=== PATIENT | female | born 2000 ===

== ENCOUNTER 2019-05-22 19:03 | Inpatient (IN) ==
[2019-05-22] MEDS ORDERED: CITRIC ACID/SODIUM CITRATE 30 ML UDCUP PO ONE (19:05)
[2019-05-22] MEDS: LACTATED RINGERS 1,000 ML IV SCH ×2 (19:20→22:21)
[2019-05-22] MEDS ORDERED: OXYTOCIN/LR 20 UNIT/1,000 ML BAG IV PRN (19:34)
[2019-05-22] MEDS ORDERED: OXYTOCIN/LR 30 UNIT/1,000 ML BAG IV PRN (19:34)
[2019-05-22] MEDS ORDERED: FAMOTIDINE 20 MG/2 ML VIAL IV PRN (19:34)
[2019-05-22] MEDS ORDERED: ONDANSETRON 4 MG/2 ML VIAL IV PRN (19:36)
[2019-05-22] MEDS ORDERED: MEPERIDINE 50 MG/1 ML VIAL IV PRN (19:36)
[2019-05-22] MEDS ORDERED: MEPERIDINE 25 MG/1 ML VIAL ONE (19:46)
[2019-05-22] MEDS ORDERED: ceFAZolin 2,000 MG in SYRINGE 1 EACH IV PRN (20:06)
[2019-05-22 20:11] LABS: Basophils % 0.2 % (0.0-0.8); Eosinophils % 0.3 % (0.00-10.9); Hematocrit 29.5 VOL% (35.7-47.0); Hemoglobin 8.5 GM/DL (12.0-16.0); Immature Granulocytes % 0.5 %; Immature Granulocytes Absolute 0.05 #; Lymphocytes # 2.5 10*3/uL (1.4-4.0); Lymphocytes % 26.2 % (21.3-54.2); Mean Corpuscular HGB Conc 28.8 GM/DL (32-36); Mean Corpuscular Volume 73.4 FL (87-102); Monocytes % 5.3 % (1.7-12.7); Neutrophils % 67.5 % (38.7-73.9); Platelet Count 240 T/CUMM (130-400); Red Blood Count 4.02 MC/CUMM (3.8-5.5); Red Cell Distribution Width 17.5 % (9.3-17.3); White Blood Count 9.5 T/CUMM (4-12)
[2019-05-22 20:13] LABS: Anisocytosis Slight; Elliptocytes Few; Hypochromasia 1+; Microcytosis 1+
[2019-05-22 20:14] LABS: Platelet Estimate Adequate; Polychromasia 1+
[2019-05-22] MEDS ORDERED: ONDANSETRON 4 MG/2 ML VIAL IV ONE (21:58)
[2019-05-22] MEDS ORDERED: diphenhydrAMINE 50 MG/1 ML VIAL IV PRN ×2 (21:58)
[2019-05-22] MEDS ORDERED: NALOXONE 0.4 MG/ML VIAL IV PRN (21:58)
[2019-05-22] MEDS ORDERED: hydrOXYzine HCL 25 MG/1 ML VIAL IM PRN (21:58)
[2019-05-22] MEDS ORDERED: PROMETHAZINE 25 MG/1 ML VIAL IM PRN (21:58)
[2019-05-22] MEDS ORDERED: ePHEDrine 50 MG/ML AMP IV PRN (21:58)
[2019-05-22] MEDS: fentaNYL 2 MCG/ROPIV 0.2% EPID 100 ML EPIDURAL SCH (23:08)
[2019-05-23] MEDS ORDERED: AMPICILLIN INJ 2,000 MG in SODIUM CHLORIDE 0.9% 100 ML IV SCH (01:00)
[2019-05-23 02:40] LABS: Apearance,Urine CLEAR (Clear); Bilirubin,Urine Negative (Negative); Blood, Urine Negative (Negative); Glucose,Urine (UA) Negative (Negative); Ketones,Urine 5 mg/dL (Negative); Mucus,Urine Occasional /LPF (Occasional); Nitrite,Urine Negative (Negative); Protein,Urine Negative; RBC,Urine <1 /HPF (0-4); Squamous Epithelial Cell,Urine Occasional /HPF (0-10); Urine Color Yellow (Yellow); Urine Specific Gravity 1.012 (1.001-1.035); Urine Urobilinogen < 2.0 EU/DL (0.2-1.0); WBC,Urine <1 /HPF (0-6)
[2019-05-23] MEDS: LACTATED RINGERS 1,000 ML IV SCH (04:45)
[2019-05-23] MEDS ORDERED: miSOPROStol 200 MCG TABLET ONE (07:59)
[2019-05-23] MEDS: fentaNYL 2 MCG/ROPIV 0.2% EPID 100 ML EPIDURAL SCH (08:15)
[2019-05-23] MEDS ORDERED: WITCH HAZEL PADS 100/JAR TOP PRN (12:27)
[2019-05-23] MEDS ORDERED: MEASLES/MUMPS/RUBELLA VACCINE 0.5 ML VIAL SUBCUT ONE (12:27)
[2019-05-23] MEDS ORDERED: IBUPROFEN 800 MG TABLET PO PRN (12:27)
[2019-05-23] MEDS ORDERED: LANOLIN 50% CREAM 0.3 OZ TUBE TOP PRN (12:27)
[2019-05-23] MEDS ORDERED: ACETAMINOPHEN 325 MG TABLET PO PRN (12:27)
[2019-05-23] MEDS ORDERED: HYDROCORTISONE 2.5% RECTAL CREAM 30 GM TUBE TOP PRN (12:27)
[2019-05-23] MEDS ORDERED: BENZOCAINE 20%/MENTHOL 0.5% SPRAY 56 GM CAN TOP PRN (12:27)
[2019-05-23] MEDS ORDERED: RHO(D) IMMUNE GLOBULIN 300 MCG SYRINGE IM ONE (12:27)
[2019-05-23] MEDS ORDERED: DIPH/TET/ACEL PERT BOOSTER VACCINE 0.5 ML VIAL IM ONE (12:27)
[2019-05-23] MEDS ORDERED: BISACODYL 10 MG SUPP RECTAL PRN (12:27)
[2019-05-23 12:38] LABS: Hematocrit 24.9 VOL% (35.7-47.0); Hemoglobin 7.3 GM/DL (12.0-16.0)
[2019-05-23] MEDS ORDERED: SODIUM CHLORIDE 0.9% 1,000 ML IV PRN (13:03)
[2019-05-23] MEDS: oxyCODONE/ACETAMINOPHEN 5-325 MG TABLET PO PRN ×2 (13:30→23:36)
[2019-05-23] MEDS ORDERED: OXYTOCIN/LR 20 UNIT/1,000 ML BAG IV ONE (14:46)
[2019-05-23] MEDS: FERROUS SULFATE 325 MG TABLET PO SCH ×2 (19:11→20:56)
[2019-05-23] MEDS: DOCUSATE SODIUM 100 MG CAPSULE PO SCH (20:56)
[2019-05-24 04:10] LABS: Basophils % 0.3 % (0.0-0.8); Eosinophils # 0.1 10*3/uL (0.0-0.87); Eosinophils % 0.5 % (0.00-10.9); Hematocrit 22.5 VOL% (35.7-47.0); Hemoglobin 6.5 GM/DL (12.0-16.0); Immature Granulocytes % 0.6 %; Immature Granulocytes Absolute 0.09 #; Lymphocytes # 3.3 10*3/uL (1.4-4.0); Lymphocytes % 21.2 % (21.3-54.2); Mean Corpuscular HGB Conc 28.9 GM/DL (32-36); Mean Corpuscular Volume 73.8 FL (87-102); Mean Platelet Volume 11.2 FL (9.6-12.0); Monocytes % 4.5 % (1.7-12.7); Neutrophils % 72.9 % (38.7-73.9); Platelet Count 169 T/CUMM (130-400); Red Blood Count 3.05 MC/CUMM (3.8-5.5); Red Cell Distribution Width 17.4 % (9.3-17.3); White Blood Count 15.5 T/CUMM (4-12)
[2019-05-24 04:57] LABS: Hypochromasia 1+; Platelet Estimate Adequate
[2019-05-24 04:58] LABS: Microcytosis 1+
[2019-05-24] MEDS: FERROUS SULFATE 325 MG TABLET PO SCH ×3 (08:45→21:01)
[2019-05-24] MEDS: DOCUSATE SODIUM 100 MG CAPSULE PO SCH ×2 (08:46→21:01)
[2019-05-24 18:14] LABS: Hematocrit 30.1 VOL% (35.7-47.0)
[2019-05-24 18:19] LABS: Hemoglobin 9.3 GM/DL (12.0-16.0)
[2019-05-24] MEDS: oxyCODONE/ACETAMINOPHEN 5-325 MG TABLET PO PRN (18:35)
[2019-05-25] MEDS: oxyCODONE/ACETAMINOPHEN 5-325 MG TABLET PO PRN (04:03)
[2019-05-25 07:19] VITALS: BP 114/60
[2019-05-25] MEDS: FERROUS SULFATE 325 MG TABLET PO SCH (09:02)
[2019-05-25] MEDS: DOCUSATE SODIUM 100 MG CAPSULE PO SCH (09:02)
== END 2019-05-25 15:05 | disposition home or self-care (01) | DRG 560 ==
LOC: N.LDOUT 19:03 → N.LD 19:04 → N.OB 05-23 13:15
PROVIDERS: ADMIT Obstetrics & Gynecology; ATTEND Obstetrics & Gynecology

== ENCOUNTER 2021-06-28 06:14 | Inpatient (IN) ==
[2021-06-28] MEDS ORDERED: oxyCODONE/ACETAMINOPHEN 5-325 MG TABLET PO PRN ×2 (06:25)
[2021-06-28] MEDS ORDERED: BENZOCAINE 20%/MENTHOL 0.5% SPRAY 56 GM CAN TOP PRN (06:25)
[2021-06-28] MEDS ORDERED: OXYTOCIN/LR 20 UNIT/1,000 ML BAG IV ONE (06:25)
[2021-06-28] MEDS ORDERED: WITCH HAZEL PADS 100/JAR TOP PRN (06:25)
[2021-06-28] MEDS ORDERED: ACETAMINOPHEN 325 MG TABLET PO PRN (06:25)
[2021-06-28] MEDS ORDERED: LANOLIN 50% CREAM 0.3 OZ TUBE TOP PRN (06:25)
[2021-06-28] MEDS ORDERED: BISACODYL 10 MG SUPP RECTAL PRN (06:25)
[2021-06-28] MEDS ORDERED: MEASLES/MUMPS/RUBELLA VACCINE 0.5 ML VIAL SUBCUT ONE (06:25)
[2021-06-28] MEDS ORDERED: HYDROCORTISONE 2.5% RECTAL CREAM 30 GM TUBE TOP PRN (06:25)
[2021-06-28] MEDS ORDERED: ONDANSETRON 4 MG/2 ML VIAL IV PRN (06:25)
[2021-06-28] MEDS ORDERED: RHO(D) IMMUNE GLOBULIN 300 MCG SYRINGE IM ONE (06:25)
[2021-06-28] MEDS ORDERED: DIPH/TET/ACEL PERT BOOSTER VACCINE 0.5 ML VIAL IM ONE (06:25)
[2021-06-28] MEDS ORDERED: KETOROLAC 30 MG/1 ML VIAL IV SCH (07:00)
[2021-06-28] MEDS ORDERED: FAMOTIDINE 20 MG/2 ML VIAL IV ONE (10:05)
[2021-06-28] MEDS: IBUPROFEN 800 MG TABLET PO PRN (10:27)
[2021-06-28] MEDS: DOCUSATE SODIUM 100 MG CAPSULE PO SCH ×2 (13:57→20:44)
[2021-06-28 17:02] LABS: Basophils % 0.2 % (0.0-0.8); Eosinophils % 0.2 % (0.00-10.9); Hematocrit 29.2 VOL% (35.7-47.0); Hemoglobin 8.4 GM/DL (12.0-16.0); Immature Granulocytes % 0.6 %; Immature Granulocytes Absolute 0.08 #; Lymphocytes # 2.4 10*3/uL (1.4-4.0); Lymphocytes % 18.9 % (21.3-54.2); Mean Corpuscular HGB Conc 28.8 GM/DL (32-36); Mean Corpuscular Volume 76.2 FL (87-102); Mean Platelet Volume 10.9 FL (9.6-12.0); Monocytes % 4.5 % (1.7-12.7); Neutrophils % 75.6 % (38.7-73.9); Platelet Count 234 T/CUMM (130-400); Red Blood Count 3.83 MC/CUMM (3.8-5.5); Red Cell Distribution Width 17.1 % (9.3-17.3); White Blood Count 12.5 T/CUMM (4-12)
[2021-06-28 17:57] LABS: Hypochromasia 1+; Platelet Estimate Normal; Polychromasia Slight
[2021-06-28] MEDS: FERROUS SULFATE 325 MG TABLET PO SCH (21:00)
[2021-06-29] MEDS: IBUPROFEN 800 MG TABLET PO PRN ×2 (03:30→20:18)
[2021-06-29 06:23] LABS: Basophils % 0.2 % (0.0-0.8); Eosinophils % 0.3 % (0.00-10.9); Hemoglobin 9.1 GM/DL (12.0-16.0); Immature Granulocytes % 0.8 %; Immature Granulocytes Absolute 0.09 #; Lymphocytes # 3.4 10*3/uL (1.4-4.0); Lymphocytes % 29.1 % (21.3-54.2); Mean Corpuscular HGB Conc 29.4 GM/DL (32-36); Mean Corpuscular Volume 75.1 FL (87-102); Mean Platelet Volume 10.9 FL (9.6-12.0); Monocytes % 3.4 % (1.7-12.7); Neutrophils % 66.2 % (38.7-73.9); Platelet Count 235 T/CUMM (130-400); Red Blood Count 4.13 MC/CUMM (3.8-5.5); Red Cell Distribution Width 17.2 % (9.3-17.3); White Blood Count 11.6 T/CUMM (4-12)
[2021-06-29] MEDS: FERROUS SULFATE 325 MG TABLET PO SCH ×2 (08:29→20:18)
[2021-06-29] MEDS: DOCUSATE SODIUM 100 MG CAPSULE PO SCH ×2 (08:29→20:18)
[2021-06-30 07:45] VITALS: BP 118/70
[2021-06-30] MEDS: FERROUS SULFATE 325 MG TABLET PO SCH (08:33)
[2021-06-30] MEDS: DOCUSATE SODIUM 100 MG CAPSULE PO SCH (08:34)
== END 2021-06-30 12:25 | disposition home or self-care (01) | DRG 561 ==
LOC: N.LD 06:14 → N.OB 10:18
PROVIDERS: ADMIT Obstetrics & Gynecology; ATTEND Obstetrics & Gynecology